=== PATIENT | female | born 1980 | race Caucasian/White ===

== ENCOUNTER 2024-09-29 20:41 | Observation (INO) | payer OTHER, SELFPAY ==
[2024-09-29 12:36] VITALS: BP 170/96
[2024-09-29 12:40] VITALS: BP 151/87
[2024-09-29 12:51] LABS: % Basophils 0.4 % (0-2); % Eosinophils 3.6 % (0-6); % Immature Granulocytes 0.4 % (0-0.5); % Lymphocytes 26.4 % (20.5-51.1); % Monocytes 7.9 % (1.7-9.3); % Neutrophils 61.3 % (42.2-75.2); Absolute Eosinophils 0.3 10^3/uL (0-0.7); Absolute Lymphocytes 2.4 10^3/uL (1.2-3.4); Absolute Monocytes 0.7 10^3/uL (0.1-0.6); Absolute Neutrophils 5.7 10^3/uL (1.4-6.5); Hematocrit 40.1 % (37.0-47.0); Hemoglobin 13.6 g/dL (12.0-16.0); Mean Corp Hgb Conc. 33.9 g/dL (33.0-37.0); Mean Corpuscular Hgb 30.5 pg (27.0-31.0); Mean Corpuscular Volume 89.9 fL (81.0-99.0); Mean Platelet Volume 8.9 fL (7.4-10.4); Nucleated Red Blood Cells % 0 %; Platelet Count 239 10^3/uL (130-400); Red Blood Cell Count 4.46 10^6/uL (4.20-5.40); Red Cell Dist. Width 13.4 % (11.5-14.5); White Blood Cell Count 9.2 10^3/uL (4.8-10.8)
[2024-09-29 13:06] LABS: ALT (SGPT) 23 U/L (0-35); AST (SGOT) 22 U/L (14-36); Alkaline Phosphatase 69 U/L (38-126); Blood Urea Nitrogen 22 mg/dl (7-17); Calcium 9.4 mg/dl (8.4-10.2); Carbon Dioxide 24 mmol/L (22-30); Chloride 98 mmol/L (98-107); Glucose 116 mg/dl (70-99); Potassium 4.1 mmol/L (3.5-5.1); Sodium 133 mmol/L (135-145); Total Bilirubin 0.7 mg/dl (0.2-1.3); Total Protein 7.8 g/dl (6.3-8.2); eGFR > 60.00
[2024-09-29 13:17] LABS: Troponin I < 0.012 ng/ml
[2024-09-29 13:30] LABS: HCG, Serum Qualitative Screen Negative
[2024-09-29 13:38] LABS: Lipase 94 U/L (23-300)
[2024-09-29 13:45] LABS: Alcohol None Detected
--- NOTE | 2024-09-29 13:47 | ED.GENMED ---
History of Present Illness
<Veronika Grier PA-C - Last Filed: 09/29/24 21:20>
General
Chief Complaint: Abdominal Pain
Source: patient
Exam Limitations: none
Time Seen by Provider: 09/29/24 13:32
History of Present Illness
History of Present Illness:
44yoF with a history of GERD, anxiety, and Tourette's presenting for evaluation of abdominal pain. Pain woke her up from sleep around 3 AM this morning. She reports a cramping pain in her epigastric region. Pain has been constant throughout the
day today and is severe. Pain is nonradiating. She admits to eating a large dinner last night consisting of mac & cheese, cake, and multiple glasses of wine. She had some minor chest earlier but she is unsure if this is related to her anxiety.
She denies any fevers, vomiting, diarrhea, urinary symptoms. She had an endoscopy several years ago which showed 'scar tissue' in her stomach. Previous abdominal surgeries include removal of an ovary.
Phy Exam
<Veronika Grier PA-C - Last Filed: 09/29/24 21:20>
Physical Exam
Physical Exam:
Patient writhing in pain, anxious
General Physical Exam
General Presentation: well appearing and mild distress
General Skin: warm and dry
General Habitus: normal
General Mental: alert and anxious
ENT Exam
ENT Exam: normocephalic
Cardiovascular Exam
Cardiovascular Exam: regular rate/rhythm and no murmur
Pulmonary Exam
Pulmonary Exam: lungs clear, no respiratory distress, no rales, no crackles and no rhonchi
Gastrointestinal Exam
Gastrointestinal Exam: soft, non distended and other (+Focal tenderness to the RUQ with +Leon's sign. Abdomen soft, non-distended. )
Neurological Exam
Neurological Exam: alert
[place] Coma Scale
Eye Opening: Spontaneous
Verbal Response: Oriented
Motor Response: Obeys Commands
GCS Total Score: 15
Skin Exam
Skin Exam: normal color and warm/dry
Psychiatric Exam
Psychiatric Exam: anxious
<Roberto Prabhakar PA-C - Last Filed: 09/29/24 20:42>
Dayna Coma Scale
GCS Total Score: 15
Course
<Veronika Grier PA-C - Last Filed: 09/29/24 21:20>
Orders/Labs/Results
Orders:
Orders
09/29/24 12:38
Test Result ONCE
09/29/24 12:40
ECG [Electrocardiogram (*1)] Urgent
Reason for Study: Abdominal Pain
EKG- Treatment ONCE
09/29/24 12:45
Alcohol Urgent
Complete Blood Count/With Diff Urgent
Comprehensive Metabolic Panel Urgent
HCG, Serum Qualitative Screen Urgent
Comment: Notify provider if positive test present
Lipase Urgent
Troponin I Urgent
09/29/24 13:44
0.9% Sodium Chloride 1000 ml [Nss] 1,000 ml IV BOLUS
HYDROmorphone [Dilaudid] 0.5 mg IV NOW STA
US Abdomen Complete/Upper Urgent
Comment:
Reason For Exam: RUQ/epigastric pain
09/29/24 14:41
Ketorolac [Toradol] 15 mg IV NOW STA
09/29/24 14:47
Ondansetron Injectable [Zofran] 4 mg IV NOW STA
09/29/24 16:37
HYDROmorphone [Dilaudid] 0.5 mg IV NOW STA
Ketorolac [Toradol] 15 mg IV NOW STA
09/29/24 16:39
Ondansetron Injectable [Zofran] 4 mg IV NOW STA
09/29/24 16:44
CT Abd/pelvis W Iv Cont Urgent
Comment:
Reason For Exam: epigastric pain
09/29/24 16:55
Clonazepam [Klonopin] 0.5 mg PO NOW STA
09/29/24 18:38
Metoclopramide [Reglan] 10 mg IV NOW STA
09/29/24 19:24
Urinalysis Reflex To Culture Urgent
Date Specimen was Collected: 09/29/24
Time Specimen was Collected: 18:50
Urine Microscopic Reflex Cult Urgent
09/29/24 19:41
Piperacillin/Tazo 3.375 Gram [Zosyn] 3.375 gram in 50 ml IV NOW
09/29/24 19:54
Admit/Transfer Patient As Directed
Co-Sign Provider:
Level of Care: Observation services
Assign to:: Medical/Surgical
Physician / Group: dr foss
Diagnosis: acute cholecystitis
PRN Pain Medication Management As Directed
May give lesser potent ordered pain med per pt: Yes
preference::
Protocol:: Medication orders for pain may be administered in a
manner that supports deferring to patient preference
when the pt is:
- Requesting an ordered lesser potent pain medication.
Least to most potent pain medications are defined
as: acetaminophen < NSAID < tramadol < opioids
(morphine, oxycodone, hydromorphone).
- Requesting a lesser dose of the same medication IF
ORDERED.
- Requesting a less intrusive route of administration
if both routes are prescribed by the provider (PO <
IV).
09/29/24 19:55
Code Status As Directed
Resuscitation Status: Full Code
09/29/24 21:16
0.9% Sodium Chloride 1000 ml [Nss] 1,000 ml IV 100 mls/hr
Acetaminophen [Tylenol] 650 mg PO Q4HPRN PRN
HYDROmorphone [Dilaudid] 0.5 mg IV Q2HPRN PRN
Ketorolac [Toradol] 10 mg IV Q6HPRN PRN
Ondansetron Injectable [Zofran] 4 mg IV Q6HPRN PRN
09/29/24 21:16
Activity As Directed
Activity Level: Out of Bed-Early Mobility
Anti-embolism (RIYA) Hose As Directed
Type: Thigh high
Intake/ Output As Directed
Frequency: Per unit guidelines
Pneumatic Compression Sleeves As Directed
Type: Thigh high
Vital Signs As Directed
Frequency: Per unit guidelines
Rx Incentive Spirometry [RESP] Routine
Frequency: q1h while awake
# of times per hour: 10
DX Deep Vein Thrombosis Video Routine
09/29/24 22:00
Clonazepam [Klonopin] 1 mg PO HS
09/30/24 02:00
Piperacillin/Tazo 3.375 Gram [Zosyn] 3.375 gram in 50 ml IV Q6H
09/30/24 Breakfast
NPO
Allow oral meds: Yes
Allow clear liquids: Sips of Clears
NPO with Ice Chips: Yes
Comment: sips and chips only until midnight 09/30 then NPO x meds
Complete Blood Count/With Diff IN AM
Comprehensive Metabolic Panel IN AM
09/30/24 08:00
Bupropion(24Hr)Extended Releas [WELLBUTRIN XL (24 hour extended release)] 300 mg PO DAILY
Clonazepam [Klonopin] 0.5 mg PO DAILY
Desvenlafaxine Succinate [Pristiq] 100 mg PO DAILY
Abnormal Lab Results
09/29/24 09/29/24
12:45 19:24
Absolute Monos (auto) 0.7 H 10^3/uL
(0.1-0.6)
Sodium 133 L mmol/L
(135-145)
BUN 22 H mg/dl
(7-17)
Glucose 116 H mg/dl
(70-99)
Urine Ketones 2+ A
(Negative)
Urine RBC 3-6 A /HPF
(0-2)
Urine Albumin (Reflex) 1+ A
(Neg - Trace)
09/29/24 12:45
09/29/24 12:45
Vital Signs
Initial and Last Documented VS:
Initial Vital Signs
Temp Pulse Resp BP Pulse Ox
97.4 F 71 18 170/96 100
09/29/24 12:36 09/29/24 12:36 09/29/24 12:36 09/29/24 12:36 09/29/24 12:36
Last Documented Vital Signs
Temp Pulse Resp BP Pulse Ox
97.4 F 72 18 153/98 98
09/29/24 12:36 09/29/24 21:00 09/29/24 21:00 09/29/24 21:00 09/29/24 21:00
<Roberto Prabhakar PA-C - Last Filed: 09/29/24 20:42>
Orders/Labs/Results
Orders:
Orders
09/29/24 12:38
Test Result ONCE
09/29/24 12:40
ECG [Electrocardiogram (*1)] Urgent
Reason for Study: Abdominal Pain
EKG- Treatment ONCE
09/29/24 12:45
Alcohol Urgent
Complete Blood Count/With Diff Urgent
Comprehensive Metabolic Panel Urgent
HCG, Serum Qualitative Screen Urgent
Comment: Notify provider if positive test present
Lipase Urgent
Troponin I Urgent
09/29/24 13:44
0.9% Sodium Chloride 1000 ml [Nss] 1,000 ml IV BOLUS
HYDROmorphone [Dilaudid] 0.5 mg IV NOW STA
US Abdomen Complete/Upper Urgent
Comment:
Reason For Exam: RUQ/epigastric pain
09/29/24 14:41
Ketorolac [Toradol] 15 mg IV NOW STA
09/29/24 14:47
Ondansetron Injectable [Zofran] 4 mg IV NOW STA
09/29/24 16:37
HYDROmorphone [Dilaudid] 0.5 mg IV NOW STA
Ketorolac [Toradol] 15 mg IV NOW STA
09/29/24 16:39
Ondansetron Injectable [Zofran] 4 mg IV NOW STA
09/29/24 16:44
CT Abd/pelvis W Iv Cont Urgent
Comment:
Reason For Exam: epigastric pain
09/29/24 16:55
Clonazepam [Klonopin] 0.5 mg PO NOW STA
09/29/24 18:38
Metoclopramide [Reglan] 10 mg IV NOW STA
09/29/24 19:24
Urinalysis Reflex To Culture Urgent
Date Specimen was Collected: 09/29/24
Time Specimen was Collected: 18:50
Urine Microscopic Reflex Cult Urgent
09/29/24 19:41
Piperacillin/Tazo 3.375 Gram [Zosyn] 3.375 gram in 50 ml IV NOW
09/29/24 19:54
Admit/Transfer Patient As Directed
Co-Sign Provider:
Level of Care: Observation services
Assign to:: Medical/Surgical
Physician / Group: dr foss
Diagnosis: acute cholecystitis
PRN Pain Medication Management As Directed
May give lesser potent ordered pain med per pt: Yes
preference::
Protocol:: Medication orders for pain may be administered in a
manner that supports deferring to patient preference
when the pt is:
- Requesting an ordered lesser potent pain medication.
Least to most potent pain medications are defined
as: acetaminophen < NSAID < tramadol < opioids
(morphine, oxycodone, hydromorphone).
- Requesting a lesser dose of the same medication IF
ORDERED.
- Requesting a less intrusive route of administration
if both routes are prescribed by the provider (PO <
IV).
09/29/24 19:55
Code Status As Directed
Resuscitation Status: Full Code
09/29/24 21:16
0.9% Sodium Chloride 1000 ml [Nss] 1,000 ml IV 100 mls/hr
Acetaminophen [Tylenol] 650 mg PO Q4HPRN PRN
HYDROmorphone [Dilaudid] 0.5 mg IV Q2HPRN PRN
Ketorolac [Toradol] 10 mg IV Q6HPRN PRN
Ondansetron Injectable [Zofran] 4 mg IV Q6HPRN PRN
09/29/24 21:16
Activity As Directed
Activity Level: Out of Bed-Early Mobility
Anti-embolism (RIYA) Hose As Directed
Type: Thigh high
Intake/ Output As Directed
Frequency: Per unit guidelines
Pneumatic Compression Sleeves As Directed
Type: Thigh high
Vital Signs As Directed
Frequency: Per unit guidelines
Rx Incentive Spirometry [RESP] Routine
Frequency: q1h while awake
# of times per hour: 10
DX Deep Vein Thrombosis Video Routine
09/29/24 22:00
Clonazepam [Klonopin] 1 mg PO HS
09/30/24 02:00
Piperacillin/Tazo 3.375 Gram [Zosyn] 3.375 gram in 50 ml IV Q6H
09/30/24 Breakfast
NPO
Allow oral meds: Yes
Allow clear liquids: Sips of Clears
NPO with Ice Chips: Yes
Comment: sips and chips only until midnight 09/30 then NPO x meds
Complete Blood Count/With Diff IN AM
Comprehensive Metabolic Panel IN AM
09/30/24 08:00
Bupropion(24Hr)Extended Releas [WELLBUTRIN XL (24 hour extended release)] 300 mg PO DAILY
Clonazepam [Klonopin] 0.5 mg PO DAILY
Desvenlafaxine Succinate [Pristiq] 100 mg PO DAILY
Abnormal Lab Results
09/29/24 09/29/24
12:45 19:24
Absolute Monos (auto) 0.7 H 10^3/uL
(0.1-0.6)
Sodium 133 L mmol/L
(135-145)
BUN 22 H mg/dl
(7-17)
Glucose 116 H mg/dl
(70-99)
Urine Ketones 2+ A
(Negative)
Urine RBC 3-6 A /HPF
(0-2)
Urine Albumin (Reflex) 1+ A
(Neg - Trace)
09/29/24 12:45
09/29/24 12:45
Vital Signs
Initial and Last Documented VS:
Initial Vital Signs
Temp Pulse Resp BP Pulse Ox
97.4 F 71 18 170/96 100
09/29/24 12:36 09/29/24 12:36 09/29/24 12:36 09/29/24 12:36 09/29/24 12:36
Last Documented Vital Signs
Temp Pulse Resp BP Pulse Ox
97.4 F 72 18 153/98 98
09/29/24 12:36 09/29/24 21:00 09/29/24 21:00 09/29/24 21:00 09/29/24 21:00
Avalt;Veronika Grier PA-C - Last Filed: 09/29/24 21:20>
MDM/Problems Addressed
Differential Diagnosis Includes:
44yoF here with epigastric pain. Woke her up from sleep at 3am this morning. Had a large dinner last night. Denies n/v or fevers. She is hypertensive with otherwise normal vitals. She is anxious and writhing around in pain. There is focal tenderness
to the RUQ on abdominal exam with a positive Leon's sign. Differential diagnosis includes but is not limited to: biliary colic, cholecystitis, pancreatitis, PUD
Initial ED plan: Abdominal labs and troponin/EKG obtained in triage. Labs unremarkable including normal white count, LFTs, and lipase. EKG shows NSR without ischemic changes. Will check upper abdominal ultrasound. IV Dilaudid and fluid bolus for
symptoms.
Final assessment: Ultrasound shows cholelithiasis without imaging findings of cholecystitis. Patient requiring multiple rounds of pain medication throughout ED stay. CT abdomen added for further evaluation. Case signed out to Aidan Prabhakar PA-C
pending CT results.
<Veronika Grier PA-C - Last Filed: 09/29/24 21:20>
*EKG
Interpreted by ED Provider?: Yes
EKG Intrepretation Date: 09/29/24
Heart Rate: 67
Rate: normal
Rhythm: sinus
[place]: normal axis
Interval: normal interval
QRS Pattern: normal QRS
Ischemia: no ischemia
<Roberto Prabhakar PA-C - Last Filed: 09/29/24 20:42>
*Radiology
Radiology exam reviewed: radiology read reviewed
*Critical Care Note
Total Time (30-74mins, 75-104mins- exclusive of procedures): Not Applicable
<Roberto Prabhakar PA-C - Last Filed: 09/29/24 20:42>
Patient Management
Discussion with other providers: Hospitalist and Plant Attendant Or Assistant Operator
Escalation/DeEscalation of care consider admission/obs:
Patient received in signout pending CT scan of the abdomen and pelvis. While awaiting the CAT scan patient had recurring episodes of nausea and vomiting. Treated with additional 10 mg of Reglan for symptomatic relief which gave patient significant
comfort. CT scan of the abdomen and pelvis showed The gallbladder being distended with subtle stranding of fat adjacent to the gallbladder raising concern for acute cholecystitis. Given the patient's presenting symptoms, abdominal exam findings and
imaging findings I do have high degree of suspicion that acute cholecystitis is the most likely diagnosis. Notified general surgery via [facility] text who agrees with workup and diagnosis. Will initiate Zosyn and keep patient n.p.o. further evaluation
in the morning. House nurse practitioner to place admission orders.
ED Attending Note
<Veronika Grier PA-C - Last Filed: 09/29/24 21:20>
-
Portions of this chart may have been created with voice recognition software.� Occasional wrong word or��sound alike� substitutions may have occurred due to the inherent limitations of voice recognition software.
Discharge Plan
Departure
Patient Disposition: Admit
Date of Disposition: 09/29/24
Time of Disposition: 19:47
Presentation/result/management discussed w/ accepting MD/DO: Yady
Discharge Problem:
Acute cholecystitis
Interventions
Interventions:
*Risk Screen - Suicide Last Done: 09/29/24 12:36
*General Assessment Last Done: 09/29/24 14:04
*Neglect/Abuse Screening Last Done: 09/29/24 21:17
ED- Fall Risk Assessment Last Done: 09/29/24 14:04
*ED COVID-19 Vaccine History Last Done: 09/29/24 14:04
*Nursing Disposition Last Done: 09/29/24 21:17
XD-Kmpary-Wuzsooxvim Assessment Last Done: 09/29/24 14:04
Discharge Date and Time
Discharge Date/Time: 09/29/24 21:17
[2024-09-29] MEDS: NSS 1000 IV ×2 (13:59→21:39)
[2024-09-29] MEDS: DILAUDID 0.5 MG IV ×2 (13:59→16:44)
[2024-09-29 14:04] VITALS: BMI 26.9
[2024-09-29 14:08] VITALS: BP 129/89
[2024-09-29] MEDS: TORADOL 15 MG IV ×2 (14:44→16:44)
[2024-09-29] MEDS: ZOFRAN 4 MG IV ×3 (14:48→21:39)
[2024-09-29 16:00] VITALS: BP 150/105
[2024-09-29] MEDS: KLONOPIN 0.5 MG PO (17:06)
[2024-09-29] MEDS: REGLAN 10 MG IV (19:20)
[2024-09-29 19:36] LABS: Urine Albumin 1+ (Neg - Trace); Urine Bilirubin Negative (Negative); Urine Character Clear (Clear); Urine Color Yellow; Urine Glucose Negative (Negative); Urine Ketone 2+ (Negative); Urine Leukocyte Negative (Negative); Urine Nitrite Negative (Negative); Urine Occult Blood Negative (Negative); Urine Urobilinogen Negative (Neg - 1+)
[2024-09-29] MEDS: ZOSYN 50 IV (19:58)
[2024-09-29 20:01] LABS: Urine Mucus Moderate; Urine Squamous Cell 0-2 /LPF (Few)
[2024-09-29 20:02] LABS: Urine White Cell 0-2 /HPF (0-5)
--- NOTE | 2024-09-29 20:22 | HPS.HSE ---
Addendum entered and electronically signed by Adam Conteh MD 09/30/24 10:18:
Patient seen and examined earlier this a.m. independently of admitting nurse practitioner. Agree with documented history and physical consistent with my current examination evaluation with additions noted here.
HPI: 44-year-old female with history of GERD, Tourette's and anxiety presenting with acute onset of epigastric and right upper quadrant abdominal pain. She had mac & cheese cake and a bottle of wine last evening. Went to sleep without symptoms but
awoke at approximately 3 AM with acute onset of severe epigastric abdominal pain, nausea but no vomiting.
May have had symptoms like this in the past but much more mild in severity and nothing that has persisted like this.
PMH -as above PSH right nephrectomy
AFVSS
NAD AAOx3 -but uncomfortable appearing
ABD: Soft, nondistended, tenderness to palpation epigastrium right upper quadrant voluntary guarding on deep palpation
Ultrasound imaging personally reviewed as well as radiologist report. Cholelithiasis, no gallbladder wall thickening but it does appear to be distended. No biliary ductal dilation but top normal at 6.[address] imaging also personally reviewed distended gallbladder subtle stranding no biliary ductal dilation. No additional significant incidental or acute findings.
Laboratory testing reviewed. CBC within normal limits, chemistry panel notable for elevated bilirubin, AST and ALT this a.m. Lipase was normal at ER evaluation.
Assessment/plan: 44-year-old female with probable acute biliary colic versus acute calculus cholecystitis and secondary elevated LFTs, common bile duct top side of normal, possible choledocholithiasis.
Reviewed with patient indications for treatment with cholecystectomy. We discussed alternative management options as well. Patient's mother was on conference phone call during our discussions as well. Patient and her mother in agreement to
proceed with cholecystectomy for management.
Laparoscopic cholecystectomy with intraoperative cholangiogram was reviewed in detail including the operative technique, potential operative findings and their management (positive IOC for choledocholithiasis requiring postoperative ERCP)
alternative treatment options, benefits and potential risk such as but not limited to bleeding, infectious and wound related complications, iatrogenic injury to surrounding viscera, bile duct injury, bile leak and postcholecystectomy fatty food
intolerances.
Any of the patient's or her mother's concerns or questions were fully addressed and informed consent was obtained.
Patient is on the OR schedule today for lap rosa with cholangiogram
Original Note:
Family Physician
-
Family Physician: Grisel Griffin
Chief Complaint
-
abd pain -epigastric
History of Present Illness
44yoF with a history of GERD, and anxiety presenting for evaluation of severe epigastric abdominal pain. Pain woke her up from sleep around 3 AM this morning. She reports a cramping pain in her epigastric region. Pain has been constant throughout
the day today and is severe. Pain is nonradiating. She admits to eating a large dinner last night consisting of mac & cheese, cake, and multiple glasses of wine. . She denies any fevers, vomiting, diarrhea, urinary symptoms. She had an
endoscopy several years ago which showed 'scar tissue' in her stomach.Only takes meds for GERD on prn basis. Has never had pain this severe but does remember having epigastric pain before but was received with antacids and never lasted this long.
Previous abdominal surgeries include removal of an ovary.
ED treatment included:
several rounds of pain meds: dilaudid and toradol
nausea med: zofran and reglan (helped the best)
zosyn started
Medical History
Past Medical History
Past Medical History: Reports GERD (occasional, not on meds) and Psychiatric (anxiety)
Past Surgical History: Reports Gynocological (right ovary removed)
Social History
Tobacco: Smoker
Alcohol: Daily (wine)
Drug: Marijuana
Employment: Employed
Family History
Family History: Not pertinent
Allergies / Home Medications
Allergies reflects when Allergies were last updated in [facility].
Home Medications with original date entered in [facility]
Allergy/Medication List:
Allergies
Allergy/AdvReac Type Severity Reaction Status Date / Time
cat dander Allergy Unknown Verified 09/29/24 12:32
Home Medications
ascorbic acid (vitamin C) 500 mg tablet (Vitamin C) 500 mg PO DAILY 09/29/24
bupropion HCl 300 mg 24 hr tablet, extended release 300 mg PO DAILY 09/29/24
cholecalciferol (vit D3) 1,000 unit-vitamin K2 (MK4) 100 mcg tablet 1 tab PO DAILY 09/29/24
clonazepam 1 mg tablet 0.5 mg PO DAILY 09/29/24
clonazepam 1 mg tablet 1 mg PO HS 09/29/24
desvenlafaxine succinate 100 mg tablet,extended release 24 hr 100 mg PO DAILY 09/29/24
vitamin B complex 1 tab PO DAILY 09/29/24
Review of Systems
-
History Source: Patient
A 12 point ROS was completed and negative except as noted: Yes
Constitutional: Reports Other (severe epigastric ruq pain)
EENT: Reports No Symptoms
Respiratory: Reports No Symptoms
Cardiac: Reports No Symptoms
Abdomen/GI: Reports Abdominal Pain (severe from 3 am to this afternoon, after meds pain now 2-3/10), Nausea and Vomiting
: Reports No Symptoms
Musculoskeletal: Reports No Symptoms
Skin: Reports No Symptoms
Neurological: Reports No Symptoms
Endocrine: Reports No Symptoms
Hematologic/Lymphatic: Reports No Symptoms
Psych: Reports Calm
Physical Exam
Vital Signs
Vital Signs
Temp Pulse Resp BP Pulse Ox
97.4 F 70 20 150/105 98
09/29/24 12:36 09/29/24 16:00 09/29/24 16:00 09/29/24 16:00 09/29/24 16:00
Physical Exam
General: Well Developed, Well Nourished, No Apparent Distress, Comfortable and Pain (currently 2-3/10)
HEENT: NormoCephalic, Anicteric, Moist mucous membranes and PERRLA
Respiratory: Clear and Non Labored Respirations
Cardiac: S1/S2 and Regular Rhythm
Breast: Deferred by me
GI: Soft, Non Distended, Normal Bowel Sounds and Tender (epigastric to RUQ)
Rectal: Deferred by Provider
Musculoskeletal: No Clubbing and No Cyanosis
Skin: Warm and Dry
Neuro: Awake, Alert, Oriented, AO x 3 and No Motor Deficits
Hematologic/Lymphatic: No Lymphadenopathy
Psych: Calm
Laboratory Results
-
09/29/24 12:45
09/29/24 12:45
Laboratory Results
Total Bilirubin 0.7 mg/dl (0.2-1.3) 09/29/24 12:45
AST 22 U/L (14-36) 09/29/24 12:45
ALT 23 U/L (0-35) 09/29/24 12:45
Alkaline Phosphatase 69 U/L (38-126) 09/29/24 12:45
Troponin I < 0.012 ng/ml 09/29/24 12:45
Lipase 94 U/L (23-300) 09/29/24 12:45
Data Reviewed
-
CT Scan: Report Reviewed by me and Discussed with Physician
Lab Data: Labs Reviewed by me
Impression/Plan
-
IMPRESSION:
acute cholecystitis
PLAN:
Admit to service of Dr Conteh
#acute cholecystitis
-CT abd IMPRESSION: On earlier ultrasound, noncalcified gallstones are identified. The gallbladder is slightly distended with transverse dimension of 4.1 cm. Subtle stranding of the fat adjacent to gallbladder, and raises concern for acute
cholecystitis.
-ABD US:IMPRESSION: Cholelithiasis. No evidence for gallbladder wall thickening or pericholecystic edema.
-NPO x meds (sips/chips ok until midnight)
-cont zosyn q6h
-IVF nss @100
-pain control: dilaudid , tylenol, toradol
-CBC, bmp in am
-Nausea med: zofran for now, reglan worked best but many interactions possible with home meds wellbutrin and pristiq so will hold off more doses
-Pt wants to discuss with surgeon poss waiting on surgery vs surgery if pain becomes controlled.
#anxiety
-cont Klonopin
-cont wellbutrin
-cont desvenlafaxine
#daily etoh use
-advised cessation
-msas protocol
#smoking
-cessation advised
Full code
DVT proph: scd for now
[2024-09-29 21:00] VITALS: BP 151/88; BP 153/98; BMI 27.2
[2024-09-29] MEDS: KLONOPIN 1 MG PO (21:39)
--- NOTE | 2024-09-29 22:34 | PTCARENOTE ---
Pt admitted to rm 336-2 and walked from stretcher to bed w/ steady gait. pt aaox3, pain in upper abd is 2/10, and zofran given for nausea (see MAR). Pt MSAS score is a 1 for nausea, VSS. Pt oriented to room, call peoples within reach, and plan of care
ongoing.
[2024-09-29 23:00] VITALS: BP 118/78
[2024-09-29] MEDS: FOLVITE 50.2 MG IV (23:15)
[2024-09-30] VITALS (9 sets, daily range): BP systolic 91–130; BP diastolic 62–81; BMI 27.2
[2024-09-30] MEDS: DILAUDID 0.5 MG IV ×3 (00:39→11:55)
[2024-09-30] MEDS: ZOSYN 50 IV ×4 (02:14→20:50)
[2024-09-30 05:43] LABS: % Basophils 0.5 % (0-2); % Eosinophils 2.9 % (0-6); % Immature Granulocytes 0.5 % (0-0.5); % Lymphocytes 18.9 % (20.5-51.1); % Monocytes 11.8 % (1.7-9.3); % Neutrophils 65.4 % (42.2-75.2); Absolute Eosinophils 0.2 10^3/uL (0-0.7); Absolute Lymphocytes 1.4 10^3/uL (1.2-3.4); Absolute Monocytes 0.9 10^3/uL (0.1-0.6); Hematocrit 36.9 % (37.0-47.0); Hemoglobin 12.5 g/dL (12.0-16.0); Mean Corp Hgb Conc. 33.9 g/dL (33.0-37.0); Mean Corpuscular Hgb 30.7 pg (27.0-31.0); Mean Corpuscular Volume 90.7 fL (81.0-99.0); Mean Platelet Volume 9.2 fL (7.4-10.4); Nucleated Red Blood Cells % 0 %; Platelet Count 200 10^3/uL (130-400); Red Blood Cell Count 4.07 10^6/uL (4.20-5.40); Red Cell Dist. Width 13.6 % (11.5-14.5); White Blood Cell Count 7.6 10^3/uL (4.8-10.8)
[2024-09-30 05:47] LABS: INR 1.01; PT 13.8 Sec (11.4-14.6)
[2024-09-30 06:05] LABS: ALT (SGPT) 233 U/L (0-35); AST (SGOT) 388 U/L (14-36); Albumin 3.9 g/dl (3.5-5.0); Alkaline Phosphatase 83 U/L (38-126); Blood Urea Nitrogen 13 mg/dl (7-17); Calcium 8.3 mg/dl (8.4-10.2); Carbon Dioxide 23 mmol/L (22-30); Chloride 103 mmol/L (98-107); Estimated Creatinine Clearance 112 ml/min; Glucose 116 mg/dl (70-99); Potassium 3.7 mmol/L (3.5-5.1); Sodium 133 mmol/L (135-145); Total Bilirubin 1.9 mg/dl (0.2-1.3); Total Protein 6.3 g/dl (6.3-8.2); eGFR > 60.00
[2024-09-30] MEDS: NSS 1000 IV ×2 (08:20→23:50)
[2024-09-30] MEDS: PRISTIQ 100 MG PO (08:20)
[2024-09-30] MEDS: FOLVITE 1 MG PO (08:21)
[2024-09-30] MEDS: KLONOPIN 0.5 MG PO (08:21)
[2024-09-30] MEDS: THIAMINE INJECTION 200 MG IV ×2 (08:21→20:51)
[2024-09-30] MEDS: WELLBUTRIN XL (24 hour extended release) 300 MG PO (08:21)
[2024-09-30] MEDS: ZOFRAN 4 MG IV (08:30)
--- NOTE | 2024-09-30 13:10 | CM ---
Patient seen at bedside. Patient states that she is for surgery today at 2pm. Patient stated that she lives with her aunt and that her mother will transport her home tomorrow when discharged. Patient PCP is Dr. Griffin and Patient uses the [facility] on
[address] on [place] for pharmacy needs. Patient denied any other concerns at this time. CM will continue to follow for discharge planning needs.
Plan; home with family watch for VN needs
--- NOTE | 2024-09-30 14:23 | W.SUR.PREOP ---
Pre-Operative Surgical Note
-
I have examined this patient prior to the performance of the scheduled procedure.
The patient's condition is unchanged from the time of the current History and
Physical and the patient is able to undergo the scheduled procedure.
--- NOTE | 2024-09-30 16:00 | W.IMMPOSTOP ---
Addendum entered and electronically signed by Adam Conteh MD 09/30/24 19:09:
#[id number]
Original Note:
Surgical Immed Post Op Note
-
Primary Surgeon: Yady
Assisting Surgeon: Lady Sanchez
Pre-op Diagnosis: Acute calculus cholecystitis
Post-op Diagnosis: Acute calculus cholecystitis
Procedure Performed: Laparoscopic cholecystectomy with intraoperative cholangiogram
Anesthesia Type: GETA +0.25% Marcaine
Specimen / Cultures: Gallbladder
Estimated Blood Loss: 8 mL
Complications: None immediate
Operative Findings: Tensely distended and hydropic gallbladder indicating cystic duct obstruction. Cyst needle decompression to aid in grasping and retraction. Omental adhesions along gallbladder both acute and chronic. Gallbladder with
significant wall edema and pericholecystic. Intraoperative cholangiogram negative for choledocholithiasis. Aberrant right hepatic branch off of common bile duct confluence of the cystic duct preserved. Gallbladder extracted at 12 mm trocar site.
Plan: Advance diet as tolerated postoperatively
Routine postoperative care
Continue antibiotics overnight but no need for antibiotics on discharge
DC home tomorrow and pain control, no nausea, ambulating and tolerating p.o. intake.
Left voicemail message for patient's mother
[2024-09-30] MEDS: KLONOPIN 1 MG PO (21:04)
[2024-09-30] MEDS: TORADOL 10 MG IV (22:29)
[2024-09-30] MEDS: ROXICODONE 5 MG PO (23:17)
[2024-10-01] MEDS: ZOSYN 50 IV ×2 (02:52→08:36)
[2024-10-01] MEDS: TYLENOL 650 MG PO (02:55)
[2024-10-01] MEDS: ROXICODONE 5 MG PO ×2 (05:53→10:11)
[2024-10-01 07:35] VITALS: BP 94/59
[2024-10-01] MEDS: NSS IV (07:40)
[2024-10-01] MEDS: THIAMINE INJECTION 200 MG IV (08:36)
[2024-10-01] MEDS: FOLVITE 1 MG PO (08:36)
[2024-10-01] MEDS: PRISTIQ 100 MG PO (08:36)
[2024-10-01] MEDS: WELLBUTRIN XL (24 hour extended release) 300 MG PO (08:38)
[2024-10-01] MEDS: KLONOPIN 0.5 MG PO (08:42)
[2024-10-01] MEDS: NSS 1000 IV (10:05)
--- NOTE | 2024-10-01 11:06 | CM ---
Patient seen at bedside. Patient aware she was admitted as obs waiting for surgery to confirm sds status. CM reviewed consult for treatment with alcohol and she indicated that she would be happy to talk to [facility]. CM will call and request
fundraising sale representative to talk to patient. CM will continue to follow for discharge planning needs.
Plan; home with no needs pending [facility] input
[2024-10-01 11:07] VITALS: BP 118/74
--- NOTE | 2024-10-01 11:43 | W.PN.GS2 ---
Today's Communication / Plan
-
DC
Assessment / Plan
-
44F POD1 s/p lap rosa with IOC for acc
AFVSS, meets criteria for DC
DC home
Subjective Data
-
Date of Service: October 01, 2024
AFVSS, ambulating, voiding, wilder PO, pain controlled
Objective Data
-
Intake and Output
09/30/24 10/01/24 10/02/24
06:59 06:59 06:59
Intake Total 0 / 0 1000 / 1000
Balance 0 / 0 1000 / 1000
Intake:
Oral fluids 0 / 0
IV fluids (Total) 900 / 900
Normosal 200 / 200
IV piggybacks 100 / 100
Other:
Number of approximated MODERATE 3
amounts of urine
How many times incontinent 1
MODERATE amount urine
Vital Signs
Temp Pulse Resp BP Pulse Ox
98.0 F 76 17 118/74 97
10/01/24 11:07 10/01/24 11:07 10/01/24 11:07 10/01/24 11:07 10/01/24 11:07
Lab Results
09/30/24 05:24
09/30/24 05:24
Calcium 8.3 mg/dl (8.4-10.2) L 09/30/24 05:24
Total Bilirubin 1.9 mg/dl (0.2-1.3) H D 09/30/24 05:24
AST 388 U/L (14-36) H 09/30/24 05:24
ALT 233 U/L (0-35) H 09/30/24 05:24
Alkaline Phosphatase 83 U/L (38-126) 09/30/24 05:24
Total Protein 6.3 g/dl (6.3-8.2) 09/30/24 05:24
Albumin 3.9 g/dl (3.5-5.0) 09/30/24 05:24
Physical Exam
-
Gen: NAD
Abd: soft, approp ttp, incisions cdi with expected ecchymosis
Patient has a charlton catheter: No
Patient has a central line: No
--- NOTE | 2024-10-01 11:44 | W.DS.TRANS ---
DC Summary - Exhibit Display Representative
-
Discharge Instructions:
Discharge Diagnosis/Procedures Acute calculus cholecystitis. Laparoscopic
cholecystectomy with intraoperative
cholangiogram
Diet As tolerated,Low Fat
Additional Diets Smaller meals initially after surgery as
abdominal bloating and distention may be common
for the first few days
Activity No strenuous activity
Additional Activity No lifting over 20 pounds for 3 to 4 weeks
postop
Driving Restrictions No driving 2 to 3 days or if using narcotics
Bathing Restrictions OK to Shower
Wound Care Glue at surgical sites typically peels off in 2
to 3 weeks
Instructions:
Stand-Alone Forms:
Changes to Home Medications: No
Discharge Medications:
DC Medications w/original date entered in [facility]
ascorbic acid (vitamin C) 500 mg tablet (Vitamin C) 500 mg PO DAILY Supplement 09/29/24
bupropion HCl 300 mg 24 hr tablet, extended release 300 mg PO DAILY depression/anxiety 09/29/24
cholecalciferol (vit D3) 1,000 unit-vitamin K2 (MK4) 100 mcg tablet 1 tab PO DAILY Supplement 09/29/24
clonazepam 1 mg tablet 0.5 mg PO DAILY anxiety 09/29/24
clonazepam 1 mg tablet 1 mg PO HS anxiety 09/29/24
desvenlafaxine succinate 100 mg tablet,extended release 24 hr 100 mg PO DAILY depression/anxiety 09/29/24
vitamin B complex 1 tab PO DAILY Supplement 09/29/24
Home Medication Changes
Pending Results: No
== END 2024-10-01 13:56 | disposition home or self-care (01) ==
LOC: 3 WEST ACU 20:41
PROVIDERS: Emergency Medicine; Nurse Practitioner Family; Physician Assistant; ADMITTING PHYSICIAN Surgery; EMERGENCY PHYSICIAN Emergency Medicine; FAMILY PHYSICIAN Internal Medicine
DX: K80.00 Calculus of gallbladder with acute cholecystitis without obstruction (principal); R10.9 Unspecified abdominal pain; F41.9 Anxiety disorder, unspecified; K21.9 Gastro-esophageal reflux disease without esophagitis; N85.4 Malposition of uterus; M41.9 Scoliosis, unspecified; F17.200 Nicotine dependence, unspecified, uncomplicated; F95.2 Tourette's disorder; R60.9 Edema, unspecified; K66.0 Peritoneal adhesions (postprocedural) (postinfection); Z90.5 Acquired absence of kidney; Z90.721 Acquired absence of ovaries, unilateral; Z79.899 Other long term (current) drug therapy
CPT/HCPCS: 47563; 88304; 74177; 74300; 76000; 76700; 80053; 81003; 81015; 82077; 83690; 84484; 84703; 85025; 85610; 93005; 96374; 96375; 96376; 99285; 99406; A4300; G0378; Q9967